=== PATIENT | female | born 1960 | race African-American/Black ===

== ENCOUNTER 2019-09-09 03:55 | Inpatient (IN) | payer OTHER ==
[2019-09-09 05:54] LABS: Troponin I 0.171 ng/mL (< 0.028)
[2019-09-09] MEDS ORDERED: Ondansetron PF 4 MG/2 ML Vial IVP PRN (05:55)
[2019-09-09] MEDS ORDERED: Acetaminophen 325 MG TAB PO PRN (05:55)
[2019-09-09] MEDS ORDERED: Ondansetron ODT 4 MG TAB PO PRN (05:55)
[2019-09-09] MEDS ORDERED: Aspirin Chewable 81 MG TAB ONE (06:07)
[2019-09-09] MEDS ORDERED: Albuterol Sulfate 2.5 mg/3 ml Neb NEB PRN (06:07)
[2019-09-09] MEDS ORDERED: Diabetic Tussin 200 MG/10 ML UDCUP PO PRN (06:15)
--- NOTE | 2019-09-09 06:26 | PDOC.FPRHP ---
- History of Present Illness Chief Complaint: Cough History of Present Illness: Pt reports to ED after coming from outlying ER due to cough. Pt states that this cough started 1 month ago. When it started pt went to ER and was given steriods, albuterol, and a zpack for 6 days. She states that when she followed up with her PCP about a week after, she was still having a cough and was given another zpack and penicillin. She finished her antibiotic course, but was still having her cough. She states that she was requiring her albuterol ever 4 hours, even though she said it lasting every 2 hour. 3 days ago, patient stated that her cough was becoming productive and she was having wheezing. She was prompted to go to the ER today because she was having L sided CP that radiated to her back. She denied fever, chills, weakness, sick/COVID contacts, N/V/D. She admitted to wheezing, SOB, weakness, congestion, headache, and orthopnea. Outlying ER: She was found to have wheezing. She had one hypoxic episode in the 80s during one of her coughing episodes. Her vitals remained stable. Troponin was neg. D-dimer was neg. Lactic acid neg. CXR was negative. She was started on ProAir and Solumedrol. COVID test was ordered here. Our ER: She was continued on ProAir and Solumedrol, with some improvement. BNP < 10. WBC 8.7. Lymph 43. Hgb 13.2. Was not hypoxic. - Allergies/Adverse Reactions Allergies Allergy/AdvReac Type Severity Reaction Status Date / Time No Known Drug Allergies Allergy Verified 09/09/19 09:14 - Home Medications Medication Instructions Recorded Confirmed Type Simvastatin 40 mg PO HS 09/09/19 09/09/19 History - History PMHx: -HLD PSHx: -partial hysterectomy 2000 -lipoma removal FHx: -father: HTN, DM -mother: HTN, DM Social: former smoker 38 y/o, denies ETOH, drug use lives with - Review of Systems General: denies: fever/chills, fatigue ENT: reports: nasal congestion Respiratory: reports: cough, congestion, shortness of breath, other (wheezing) Cardiovascular: denies: chest pain, palpitation, edema Gastrointestinal: denies: nausea, vomiting, diarrhea Genitourinary: denies: dysuria Neurological: reports: weakness - Vital signs BP: 178/88 HR: 95 RR: 18 Tmax: 98.6 Pox: 99% Wt: 133.81kg - Physical Exam Constitutional: NAD, awake, alert and oriented HEENT: normocephalic and atraumatic, conjunctiva clear, no scleral icterus Neck: supple, FROM Chest: no-tender to palpation, no lesions Heart: RRR, normal S1/S2, other (unable to perform heart exam due to no disposable stethoscope available) Lungs: CTAB, no respiratory distress, other (unable to perform lung exam due to no disposable stethoscope available) Abdomen: soft, non-tender Musculoskeletal: normal structure, normal tone, ROM grossly normal Neurological: no focal deficit, normal sensation Skin: capillary refill <2 seconds, other (no edema) Heme/Lymphatic: no unusual bruising or bleeding, no purpura Psychiatric: normal mood and affect, good judgment and insight FMR H&P: Results - Labs Result Diagrams: 09/09/19 12:28 09/09/19 12:27 FMR H&P: A/P - Problem List (1) HLD (hyperlipidemia) Current Visit: Yes Status: Chronic Code(s): E78.5 - HYPERLIPIDEMIA, UNSPECIFIED (2) Person under investigation for COVID-19 Current Visit: Yes Status: Acute Code(s): Z20.828 - CONTACT W AND EXPOSURE TO OTH VIRAL COMMUNICABLE DISEASES (3) Bronchitis Current Visit: Yes Status: Acute Code(s): J40 - BRONCHITIS, NOT SPECIFIED ACUTE OR CHRONIC - Plan ## Bronchitis, worsening -continue with proair, predisone 40mg -guaifenisen prn ## COVID PUI -COVID test pending -CXR negative -d-dimer negative ## HLD -home medication on a statin (unsure which one) -on ASA at home VTE PPX: Lovenox Diet: Heart Healthy IVF: SL PCP: Maddy Dispo: admitted to observation on telemetry. expected length of stay < 48 hours. will f/u with pending COVID results. monitor symptoms FMR H&P: Upper Level - Plan Date/Time: 09/09/19 0613 Cielo Farmer, have evaluated this patient and agree with findings/plan as outlined by consulting intern resident. Pertinent changes/additions are listed here. 59 yo F with PMH HLD is transferred from [place] for cough. Reports 1 month history of persistent cough. Was diagnosed with bronchitis, treated with steroids, 2 rounds of azithromycin outpatient with continued aggravating cough. Endorses wheezing. Says she has been using albuterol nebs at home q4h to help with her cough. No hx asthma, COPD, remote smoking hx, no allergies, no new pets , does not work and stays at home. Has never needed inhalers before. Denies fever, congestion, difficulty breathing. No sick contacts. Reports cough overall unchanged in severity over past month. Has coughed up some yellow phlegm. She satted down to 80s in [place] during cough spell but otherwise has been stable on RA. Exam limited due to no stethoscope available in covid rule out room in ED Gen: NAD Resp: normal effort Abd: soft, NT, ND Ext: no edema Persistent cough -Likely 2/2 bronchitis with reactive airways. No signs of PNA, CXR negative, WBC normal with lymphocyte predominance, afebrile. She is a nonsmoker. Completed 2 rounds of azithro outpatient, will not restart abx at this time. No hypoxia. -s/p solumedrol and albuterol inhalers in ED. Continue inhalers prn and oral prednisone to complete course. No concern for volume overload attributing- BNP negative, CXR neg, no edema on exam, -prn robitussin, guafenasine etc as needed for symptomatic control COVID PUI -no known contacts HLD -restart home statin with med rec -on ASA daily Prior hx HTN-recently taken off all meds by PCP Dispo: admit for observation. Covid pending. Patient stable with no respiratory distress or O2 requirement. Addendum - Attending - Attending Attestation Date/Time: 09/09/19 8115 I personally evaluated the patient and discussed the management with Dr. Edgar/ Shobha. I agree with the History, Examination, Assessment and Plan documented above with any addition or exceptions noted below. 59 yo AAF with 1 month hx of SOB/cough that has failed multiple rounds of steroids, nebs and abx. Presented with same complaint plus CP. Pain improved at time of my exam. Exam above completed by me. Now appears to be having NSTEMI. Will start lovenox and consult cards. Inpatient, Tele, >2 midnights.
[2019-09-09 06:47] VITALS: BMI 41.1
[2019-09-09] MEDS: Enoxaparin Sodium 120 MG/0.8 ML SYRINGE SC SCH ×2 (08:43→20:42)
[2019-09-09] MEDS ORDERED: Enoxaparin Sodium 40 MG/0.4 ML SYRINGE SC SCH (09:00)
[2019-09-09] MEDS ORDERED: Albuterol 200 PUFF (6.7GM INHALER) INH PRN (10:30)
[2019-09-09 11:51] LABS: SARS-CoV-2 MS2 Positive; SARS-CoV-2 N Gene Negative; SARS-CoV-2 S Gene Negative; SARS-CoV-2 orf1ab Negative
[2019-09-09 12:36] LABS: Hemoglobin 14.1 g/dL (12.0-16.0); Platelet Count 322 thou/uL (130-400)
[2019-09-09 12:54] LABS: Calc. Creatinine Clearance 173 mL/min (70-130); Estimated GFR-MDRD Greater than 90
--- NOTE | 2019-09-09 15:49 | CON ---
DATE OF CONSULTATION: 09/09/2019 REASON FOR CONSULTATION: Elevated troponin. PRIMARY PHARMACY GRAD INTERN: None. HISTORY OF PRESENT ILLNESS: Ms. Wiley is a very pleasant 59-year-old woman with past history of asthma, who recently presented with increased cough in addition to shortness of breath. She states she was "felt like dying." She presented to emergency room with the above. She was given neb treatment and oxygen with significant improvement. Her initial troponin was 0.1 and increased to 0.4. PAST MEDICAL HISTORY: Obesity, hyperlipidemia, partial hysterectomy, and lipoma removal. FAMILY HISTORY: Positive for diabetes. SOCIAL HISTORY: Previous smoker. No alcohol use. Currently lives with her . REVIEW OF SYSTEMS: Ten-point review of systems is reviewed and as above, otherwise negative. PHYSICAL EXAMINATION: GENERAL: Patient is a pleasant woman, who is in no acute distress. The patient appears their stated age. VITAL SIGNS: Blood pressure 139/74, pulse 94, and temperature 98.2. NEUROLOGIC: The patient is alert and oriented x3 with no focal neurologic deficits. HEENT: Sclerae without icterus. Mouth has moist mucous membranes with normal pallor. NECK: No JVD. Carotid upstroke brisk. No bruits bilaterally. LUNGS: Clear to auscultation with unlabored respirations. BACK: No scoliosis or kyphosis. CARDIAC: Regular rate and rhythm with normal S1 and S2. No S3 or S4 noted. No significant rubs, murmurs, thrills, or gallops noted throughout the precordium. PMI is not displaced. There is no parasternal heave. ABDOMEN: Soft, nontender, nondistended. No peritoneal signs present. No hepatosplenomegaly. No abnormal striae. EXTREMITIES: 2+ femoral and 2+ dorsalis pedis pulses. No cyanosis, clubbing, or edema. SKIN: No gross abnormalities. PERTINENT LABORATORY DATA: Hemoglobin 14.1, hematocrit 43.7. Troponin as above. EKG, normal sinus rhythm, normal EKG. IMPRESSION: 1. Elevated troponin. 2. ? asthma. 3. Obesity. RECOMMENDATIONS: Ms. Wiley's symptoms may certainly suggest unstable angina. Her troponin is certainly in the positive range suggesting myocardial damage. We would recommend echo Doppler. I also discussed proceeding with noninvasive stress study, which may be difficult due to asthma versus coronary angiography. After discussing the risks and benefits above, she decided to proceed with coronary angiography. I discussed the procedure in full detail with Ms. Wiley. Risks included, but are not limited to the following: I discussed the procedure in full detail with the patient. The risks of the procedure were also discussed. The risks of the procedure include but are not limited to the following: , stroke, AR, need for emergency surgery, loss of limb, bleeding, and infection, as well as a reaction to the dye causing kidney failure and needing long-term dialysis. I also discussed the risks of PCI to include all of the above including coronary dissection and perforation in addition to acute stent thrombosis and restenosis. All questions about the procedure were answered. Given the above, the patient agreed to proceed with coronary angiography and possible PCI. All questions were answered given the above. The patient agreed to proceed with above procedure. Also discussed drug coated with [id number] stent placement. There were no complications to proceed with drug-coated stent placement if needed. Job ID: [id number]
[2019-09-09] MEDS: predniSONE 20 MG TAB PO SCH (20:41)
[2019-09-09] MEDS: Atorvastatin Calcium 20 MG TAB PO SCH (20:41)
[2019-09-10 04:40] LABS: #Monocytes 0.3 thou/uL (0.11-0.59); #Neutrophils 7.9 thou/uL (1.40-6.50); %Basophils 0.1 % (0.0-1.0); %Eosinophils 0.3 % (0.0-10.0); %Lymphocytes 19.3 % (21.0-51.0); %Monocytes 2.7 % (0.0-10.0); %Neutrophils 77.6 % (42.0-75.0); Hemoglobin 13.9 g/dL (12.0-16.0); Mean Corpuscular HGB CONC 32.6 g/dL (32.0-36.0); Mean Corpuscular Hemoglobin 29.3 pg (27.0-31.0); Mean Corpuscular Volume 89.9 fL (78.0-98.0); Mean Platelet Volume 8.4 fL (7.4-10.4); Platelet Count 332 thou/uL (130-400); RBC Distribution Width 13.7 % (11.5-14.5); Red Blood Cell (RBC) Count 4.74 mill/uL (4.20-5.40); White Blood Cell (WBC) Count 10.2 thou/uL (4.8-10.8)
[2019-09-10 04:56] LABS: Anion Gap 12 mmol/L (10-20); BUN (Urea Nitrogen) 9 mg/dL (9.8-20.1); Calc. Creatinine Clearance 169 mL/min (70-130); Calcium 10.1 mg/dL (7.8-10.44); Carbon Dioxide 27 mmol/L (23-31); Chloride 105 mmol/L (98-107); Estimated GFR-MDRD Greater than 90; Glucose 144 mg/dL (80-115); Sodium 140 mmol/L (136-145)
--- NOTE | 2019-09-10 05:18 | PDOC.FM ---
- Subjective Subjective: Pt slept well overnight. She denies any chest pain, SOB, or swelling. - Objective MAR Reviewed: Yes Vital Signs & Weight: Vital Signs (12 hours) Temp Pulse Resp BP Pulse Ox 09/10/19 03:50 97.7 F 83 16 158/73 H 98 09/10/19 00:00 79 09/09/19 20:34 98.4 F 88 18 176/98 H 98 Weight Weight 133.9 kg I&O: 09/08/19 09/09/19 09/10/19 06:59 06:59 06:59 Intake Total 2100 Output Total 2700 Balance -600 Result Diagrams: 09/10/19 03:54 09/10/19 03:54 Phys Exam - Physical Examination Constitutional: NAD HEENT: moist MMs Neck: no JVD Respiratory: no wheezing, clear to auscultation bilateral Cardiovascular: RRR, no significant murmur Gastrointestinal: soft, non-tender, no distention, positive bowel sounds Musculoskeletal: no edema, pulses present Neurological: moves all 4 limbs Psychiatric: A&O x 3 Skin: cap refill <2 seconds Dx/Plan - Plan Plan: NSTEMI -Troponin at 0.4 at last check -Dr. Wheat plans for a heart cath this morning -Pt NPO -This may have been contributing to her SOB -On therapeutic lovenox Bronchitis -Will continue steroids, proair, gauifenisen for now COVID negative HLD -Continue home aspirin and statin HTN -Will start amlodipine for now, may transition to carvedilol Addendum - Attending - Attending Attestation Date/Time: 09/10/19 3894 I personally evaluated the patient and discussed the management with Dr. Greenberg. I agree with the History, Examination, Assessment and Plan documented above with any addition or exceptions noted below. Cath today per cards. Dispo pending results.
[2019-09-10] MEDS: Aspirin 81 mg Enteric Coated Tablet PO SCH (05:49)
[2019-09-10] MEDS: Amlodipine 5 MG TAB PO SCH (05:49)
[2019-09-10] MEDS ORDERED: Communication Order-Pharmacy FS SCH (07:45)
[2019-09-10] MEDS ORDERED: Iopamidol 370 76% 100 ML VIAL ONE (09:42)
[2019-09-10] MEDS ORDERED: Verapamil 5 MG/2 ML VIAL ONE (11:43)
[2019-09-10] MEDS ORDERED: Nitroglycerin 100MG/250ML BOT 250 ML ONE (11:43)
[2019-09-10] MEDS ORDERED: Heparin 10,000 UNITS/1 ML VIAL ONE (11:43)
[2019-09-10] MEDS ORDERED: Midazolam HCl 2 mg/2 ml Vial ONE (12:08)
[2019-09-10] MEDS ORDERED: Fentanyl 100 MCG/2 ML VIAL ONE (12:09)
[2019-09-10] MEDS ORDERED: Sodium Chloride 0.9% 200 ML IV PRN (12:29)
[2019-09-10] MEDS ORDERED: Acetaminophen/Codeine 30-300mg Tablet PO PRN ×2 (12:29)
[2019-09-10] MEDS ORDERED: Nitroglycerin 0.4 MG TAB (25 Tab Bottle) SL PRN (12:29)
[2019-09-10] MEDS ORDERED: Sodium Chloride 0.9% 1,000 ML IV SCH (12:30)
[2019-09-10] MEDS: Atorvastatin Calcium 20 MG TAB PO SCH (20:52)
[2019-09-10] MEDS: predniSONE 20 MG TAB PO SCH (20:52)
[2019-09-11 04:27] LABS: #Lymphocytes 1.5 thou/uL (1.20-3.40); #Monocytes 0.2 thou/uL (0.11-0.59); %Basophils 0.1 % (0.0-1.0); %Eosinophils 0.5 % (0.0-10.0); %Lymphocytes 26.6 % (21.0-51.0); %Monocytes 3.1 % (0.0-10.0); %Neutrophils 69.7 % (42.0-75.0); Hemoglobin 13.8 g/dL (12.0-16.0); Mean Corpuscular HGB CONC 30.6 g/dL (32.0-36.0); Mean Corpuscular Hemoglobin 27.7 pg (27.0-31.0); Mean Corpuscular Volume 90.3 fL (78.0-98.0); Mean Platelet Volume 8.3 fL (7.4-10.4); Platelet Count 302 thou/uL (130-400); RBC Distribution Width 13.8 % (11.5-14.5); Red Blood Cell (RBC) Count 4.98 mill/uL (4.20-5.40); White Blood Cell (WBC) Count 5.8 thou/uL (4.8-10.8)
[2019-09-11 04:41] LABS: Anion Gap 11 mmol/L (10-20); BUN (Urea Nitrogen) 9 mg/dL (9.8-20.1); Calc. Creatinine Clearance 171 mL/min (70-130); Calcium 9.5 mg/dL (7.8-10.44); Carbon Dioxide 26 mmol/L (23-31); Chloride 106 mmol/L (98-107); Estimated GFR-MDRD Greater than 90; Glucose 139 mg/dL (80-115); Potassium 3.9 mmol/L (3.5-5.1); Sodium 139 mmol/L (136-145)
--- NOTE | 2019-09-11 06:21 | PDOC.FM ---
- Subjective Subjective: NAEO. Pt denies chest pain, SOB, abdominal pain, or pain in her right wrist. - Objective MAR Reviewed: Yes Vital Signs & Weight: Vital Signs (12 hours) Temp Pulse Resp BP BP Pulse Ox 09/11/19 04:00 98.4 F 80 19 126/76 98 09/10/19 20:00 97.2 F L 67 16 126/59 L 98 Weight Weight 133.9 kg I&O: 09/09/19 09/10/19 09/11/19 06:59 06:59 06:59 Intake Total 2340 960 Output Total 2700 Balance -360 960 Result Diagrams: 09/11/19 04:04 09/11/19 04:04 Phys Exam - Physical Examination Constitutional: NAD HEENT: moist MMs Neck: no JVD Respiratory: no wheezing, clear to auscultation bilateral Cardiovascular: RRR, no significant murmur Gastrointestinal: soft, non-tender, no distention, positive bowel sounds Musculoskeletal: no edema, pulses present Neurological: normal sensation, moves all 4 limbs Psychiatric: normal affect, A&O x 3 Skin: normal turgor, cap refill <2 seconds Dx/Plan - Plan Plan: NSTEMI -S/P heart cath with no significant CAD on 09/09 -Dr. Wheat consulted, will appreciate his recommendations Bronchitis -Will continue steroids, proair, gauifenisen for now COVID negative HLD -Continue home aspirin and statin HTN -Will start amlodipine for now, may transition to carvedilol Addendum - Attending - Attending Attestation Date/Time: 09/11/19 8872 I personally evaluated the patient and discussed the management with Dr. Greenberg. I agree with the History, Examination, Assessment and Plan documented above with any addition or exceptions noted below. cath unremarkable. outpatient f/u with cards set. d/c home.
[2019-09-11] MEDS: Aspirin 81 mg Enteric Coated Tablet PO SCH (07:55)
[2019-09-11] MEDS: Amlodipine 5 MG TAB PO SCH (07:55)
[2019-09-11 12:01] VITALS: BP 123/57; TEMP 97.9
--- NOTE | 2019-09-11 14:04 | PRG ---
DATE OF SERVICE: 09/11/2019 SUBJECTIVE: Ms. Wiley is doing well. No current complaints. OBJECTIVE: VITAL SIGNS: Blood pressure 120/57, pulse 62, and temperature 97.9. LUNGS: Clear to auscultation. HEART: Regular rate and rhythm. ABDOMEN: Soft, nontender, and nondistended. EXTREMITIES: No edema. IMPRESSION: 1. Shortness of breath. 2. Elevated troponin. 3. Recent diagnosis of asthma. RECOMMENDATIONS: Ms. Wiley has no significant underlying coronary artery disease. We will continue with conservative therapy. I discussed adding an echo with Doppler. She states she would like to go home. We will perform as an outpatient. We will follow up in the office with echo. Job ID: [id number]
--- NOTE | 2019-09-11 16:54 | DIS ---
DATE OF ADMISSION: 09/09/2019 DATE OF DISCHARGE: 09/11/2019 ADMITTING ATTENDING: Dr. Du Cardenas. DISCHARGING ATTENDING: Dr. Du Cardenas. RESIDENT: Fran Greenberg DO CONSULTS: Dr. Hieu Wheat. PROCEDURES: 1. Chest x-ray shows no evidence of acute cardiopulmonary disease. 2. Heart catheterization in the right wrist shows no significant CAD. PRIMARY DIAGNOSES: Acute bronchitis secondary to viral illness, not COVID, [id number] myocardial infarction with unknown cause. SECONDARY DIAGNOSES: Hypertension and hyperlipidemia. DISCHARGE MEDICATIONS: 1. Amlodipine 5 mg p.o. daily. 2. Nitroglycerin 0.4 mg sublingual q.5 minutes p.r.n. chest pain. 3. Prednisone 40 mg p.o. daily, q. 4 days. 4. Aspirin 81 mg p.o. daily. 5. Simvastatin 40 mg p.o. h.s. DISCONTINUED MEDICATIONS: None. BRIEF HISTORY OF PRESENT ILLNESS/HOSPITAL COURSE: This is a 59-year-old female with past medical history as above, who presented to the ER with chief complaint of shortness of breath. It had been going on for the last month. She had been treated multiple times outpatient for a bronchitis with steroids, antibiotics, and nebulized treatments. She states that her symptoms continued, and she had pain worse with exertion. She was admitted to the hospital, where her troponins trended up to the highest, from 0.01 to 0.4. At this point, we consulted Dr. Wheat, who performed a heart catheterization, which revealed no stenosis. During the heart catheterization, there was no documented EF observed from the left ventricle. The patient is to be discharged today with a followup appointment with Dr. Wheat' office on 09/17. Due to a lack of EF and no symptoms of new onset heart failure, the patient is not to be discharged on a beta hayden or lisinopril at this time that may be changed in outpatient setting. We will continue the patient's aspirin and simvastatin at this time for risk management. The patient denies any symptoms at this time including chest pain, shortness of breath, nausea, vomiting, diaphoresis, or exertional dyspnea. DISPOSITION: Stable. DISCHARGE INSTRUCTIONS: 1. Location: Home. 2. Diet: Heart healthy. 3. Activity: As tolerated. 4. Follow up with Dr. Castañeda in 1 to [address] Wheat on the . Job ID: [id number]
== END 2019-09-11 14:22 | disposition home or self-care (01) | DRG 281 ==
LOC: ERS 03:55 → 2SW 06:34 → OBSVTOIN 06:34 → 2NO 20:35
PROVIDERS: ADMIT Family Medicine; ATTEND Family Medicine
PROC: 8E0ZXY6 Isolation (ICD-10-PCS; 2019-09-09)
PROC: B2111ZZ Fluoroscopy of Multiple Coronary Arteries using Low Osmolar Contrast (ICD-10-PCS; principal; 2019-09-10)
PROC: 4A023N6 Measurement of Cardiac Sampling and Pressure, Right Heart, Percutaneous Approach (ICD-10-PCS; 2019-09-10)
DX: I21.4 Non-ST elevation (NSTEMI) myocardial infarction (principal); Z68.41 Body mass index [BMI] 40.0-44.9, adult; J20.8 Acute bronchitis due to other specified organisms; I10 Essential (primary) hypertension; Z20.828 Contact with and (suspected) exposure to other viral communicable diseases; E78.5 Hyperlipidemia, unspecified; E66.9 Obesity, unspecified; Z90.710 Acquired absence of both cervix and uterus; Z87.891 Personal history of nicotine dependence
CPT/HCPCS: 36415; 76942; 80048; 84145; 85025; 87635; 93005; 93010; 93454; 93798; 96372; 99152; G0378; J1644; J1650; J2250; J3010; J7512; Q9967; U0003